=== PATIENT | male | born 1965 | race Caucasian/White ===

== ENCOUNTER 2020-09-04 16:27 | Inpatient (IN) | payer BC, MEDICAID ==
[~2020-09-04] VITALS: Ht 177.8 cm; Wt 53.3 kg
--- NOTE | 2020-09-04 17:30 | NUR ---
PATIENT HAS STENT IN LEFT LEG, GLF 1.5 WEEKS AGO, PER PATIENT "FALL KNOCKED MY STENT OUT OF WHACK." PATIENT WAS SCHEDULED AT [facility] FOR SURGERY TODAY AT 1530 TO FIX STENT, DID NOT MAKE APPT. PT RESTING IN [facility], MONITORING IN PLACE, NADN AT THIS TIME, WCTM.
[2020-09-04] MEDS ORDERED: KETOROLAC 30 MG/1 ML ONE (17:48)
[2020-09-04 18:00] LABS: MEAN CORPUSCULAR HEMOGLOBIN 22.5 pg (27.5-34.5); MEAN CORPUSCULAR HGB CONC 31.4 g/dL (33.2-36.2); MEAN PLATELET VOLUME 7.6 fL (7.4-10.4); PLATELET COUNT 401 x10^3/uL (130-400); RED BLOOD COUNT 4.07 x10^6/uL (4.38-5.82); RED CELL DISTRIBUTION WIDTH 17.5 % (9.4-14.8)
[2020-09-04] MEDS ORDERED: PLEASE ENTER WEIGHT MC SCH (18:00)
[2020-09-04] MEDS ORDERED: KETOROLAC 30 MG/1 ML IVPush ONE (18:00)
[2020-09-04] MEDS ORDERED: SODIUM CHLORIDE FLUSH 10ML SYR IVF ONE (18:00)
[2020-09-04] MEDS ORDERED: SODIUM CHLORIDE 0.9% 1,000ML IVBOLUS ONE ×2 (18:00→19:30)
[2020-09-04 18:01] LABS: MD YES
[2020-09-04 18:03] LABS: MICROSCOPIC INDICATED
[2020-09-04 18:06] LABS: ALBUMIN 2.5 g/dL (3.4-5.0); ANION GAP 7 mmol/L (5-15); CALCIUM 8.4 mg/dL (8.5-10.1); CHLORIDE 94 mmol/L (98-107); CREATININE 1.28 mg/dL (0.7-1.3)
[2020-09-04 18:38] LABS: ANISOCYTOSIS 1+; BAND#(MANUAL) 0.46 x10^3/uL; BANDS%(MANUAL) 2 % (0-7); LYMPH#(MANUAL) 1.86 x10^3/uL (1-3.4); LYMPHS% (MANUAL) 8 % (22-44); MICROCYTOSIS 1+; MONOS#(MANUAL) 0.46 x10^3/uL (0.3-2.7); MONOS% (MANUAL) 2 % (2-9); SEG#(MANUAL) 20.42 x10^3/uL (1.8-6.8); SEGS% (MANUAL) 88 % (42-75)
[2020-09-04 18:39] LABS: <PLATELET ESTIMATE> INCREASED; <PLT MORPHOLOGY> NORMAL PLT MORPH
[2020-09-04] MEDS ORDERED: MORPHINE SULFATE 4 MG/ML, 1ML IVPush PRN (19:00)
[2020-09-04] MEDS ORDERED: MORPHINE SULFATE 4 MG/ML, 1ML ONE (19:08)
--- NOTE | 2020-09-04 19:11 | NUR ---
PT TO CT VIA [facility] AT THIS TIME.
[2020-09-04] MEDS ORDERED: OMNIPAQUE 350 MG/ML, 100ML BOTTLE ONE (19:23)
[2020-09-04] MEDS ORDERED: CLINDAMYCIN PMX 600MG/50ML 50 ML ONE (20:24)
[2020-09-04] MEDS ORDERED: CLINDAMYCIN PMX 600MG/50ML 50 ML IV ONE (20:30)
[2020-09-04] MEDS ORDERED: VANCOMYCIN PER PHARMACY MC PRN ×2 (20:30→21:30)
[2020-09-04] MEDS ORDERED: VANCOMYCIN 1,300 MG in SODIUM CHLORIDE 0.9% 250 ML IV ONE (20:30)
[2020-09-04] MEDS ORDERED: CEFTRIAXONE PMX 1GM/50ML 50 ML IV SCH (21:00)
[2020-09-04] MEDS ORDERED: ONDANSETRON ODT 4 MG PO PRN (21:30)
[2020-09-04] MEDS ORDERED: POLYETHYLENE GLYCOL 17 GM PACKET PO PRN (21:30)
[2020-09-04] MEDS ORDERED: BISACODYL 10 MG SUPP PR PRN (21:30)
[2020-09-04] MEDS ORDERED: ACETAMINOPHEN 325 MG TABLET PO PRN (21:30)
[2020-09-04] MEDS: OXYcodone IR 5MG TABLET PO PRN (22:24)
[2020-09-04] MEDS ORDERED: PHARMACOKINETIC MONITORING MC PRN (22:30)
[2020-09-04 23:05] VITALS: BP 177/104
[2020-09-04] MEDS ORDERED: AMLO-211 PO (23:10)
[2020-09-04] MEDS ORDERED: METO-93 PO (23:10)
[2020-09-04] MEDS ORDERED: TAMS-11 PO (23:10)
[2020-09-04] MEDS ORDERED: LISI5TAB7 PO (23:10)
[2020-09-04] MEDS ORDERED: HYDR-3343 PO (23:10)
[2020-09-04 23:13] VITALS: BP 196/115
[2020-09-04] MEDS: INSULIN LISPRO 100 UNITS/ML, PEN SQ-INSULIN SCH (23:15)
[2020-09-04] MEDS ORDERED: LABETALOL 5MG/ML, 20ML IVPush ONE (23:30)
[2020-09-05] MEDS: PIPERACILLIN/TAZO/PMX 3.375GM 50 ML IV SCH ×2 (00:12→06:04)
[2020-09-05] MEDS: FLUCONAZOLE 100MG/50ML 100 MG in BAG 1 EACH IVPB SCH (00:43)
[2020-09-05] MEDS: NS + 20MEQ KCL 1,000 ML IV SCH ×2 (01:43→16:55)
[2020-09-05 02:15] VITALS: BP 164/92
[2020-09-05 05:11] LABS: BASOPHILS % (AUTO) 0 % (0-1); EOSINOPHILS % (AUTO) 1 % (1-7); LYMPHOCYTES % (AUTO) 9 % (22-44); MEAN CORPUSCULAR HEMOGLOBIN 22.5 pg (27.5-34.5); MEAN CORPUSCULAR HGB CONC 31.6 g/dL (33.2-36.2); MEAN PLATELET VOLUME 7.8 fL (7.4-10.4); MONOCYTES % (AUTO) 5 % (2-9); NEUTROPHILS % (AUTO) 85 % (42-75); PLATELET COUNT 371 x10^3/uL (130-400); RED BLOOD COUNT 3.79 x10^6/uL (4.38-5.82); RED CELL DISTRIBUTION WIDTH 17.3 % (9.4-14.8)
[2020-09-05 05:26] LABS: CHLORIDE 99 mmol/L (98-107)
[2020-09-05 05:30] LABS: ANION GAP 7 mmol/L (5-15); CALCIUM 8.6 mg/dL (8.5-10.1); CREATININE 1.24 mg/dL (0.7-1.3)
[2020-09-05 05:47] LABS: MD SCAN
[2020-09-05] MEDS: METOPROLOL SUCCINATE 50 MG TAB.ER.24H PO SCH (06:15)
[2020-09-05] MEDS: OXYcodone IR 5MG TABLET PO PRN ×3 (06:20→13:20)
[2020-09-05 08:03] VITALS: BP 169/94
[2020-09-05] MEDS: INSULIN LISPRO 100 UNITS/ML, PEN SQ-INSULIN SCH ×4 (08:14→21:27)
[2020-09-05] MEDS: AMLODIPINE 10 MG TAB PO SCH (08:20)
[2020-09-05] MEDS: TAMSULOSIN 0.4 MG CAP.ER.24H PO SCH (08:20)
[2020-09-05] MEDS: LISINOPRIL 5 MG TABLET PO SCH (08:20)
[2020-09-05] MEDS: SENNA/DOCUSATE TABLET PO SCH (08:21)
[2020-09-05] MEDS ORDERED: POTASSIUM CHLORIDE 40 MEQ in SODIUM CHLORIDE 0.9% 500 ML IV ONE (08:30)
[2020-09-05] MEDS ORDERED: INSULIN GLARGINE 100 UNITS/ML, PEN SQ-INSULIN SCH (09:00)
[2020-09-05] MEDS: AMPICILLIN/SULBACTAM 3 GM in SODIUM CHLORIDE 0.9% 100 ML IV SCH ×2 (11:17→18:36)
[2020-09-05 12:55] VITALS: BP 163/89
[2020-09-05] MEDS: MORPHINE SULFATE 4 MG/ML, 1ML IVPush PRN ×2 (14:40→20:16)
[2020-09-05] MEDS ORDERED: MAGNESIUM SULFATE PMX 2GM/50ML 50 ML IV ONE (19:00)
[2020-09-05] MEDS ORDERED: VANCOMYCIN PMX 1GM/200ML 200 ML IV SCH (20:00)
[2020-09-05 20:18] VITALS: BP 137/84
[2020-09-05] MEDS ORDERED: FAMOTIDINE 20 MG TABLET PO SCH (21:00)
[2020-09-05] MEDS: INSULIN GLARGINE 100 UNITS/ML, PEN SQ-INSULIN SCH (21:26)
[2020-09-06] MEDS: AMPICILLIN/SULBACTAM 3 GM in SODIUM CHLORIDE 0.9% 100 ML IV SCH ×4 (00:25→18:08)
[2020-09-06] MEDS: MORPHINE SULFATE 4 MG/ML, 1ML IVPush PRN ×4 (00:34→19:50)
[2020-09-06 00:39] VITALS: BP 144/84
[2020-09-06] MEDS: FLUCONAZOLE 100MG/50ML 100 MG in BAG 1 EACH IVPB SCH (01:13)
[2020-09-06 05:22] LABS: CHLORIDE 98 mmol/L (98-107)
[2020-09-06 05:23] LABS: MEAN CORPUSCULAR HEMOGLOBIN 22.7 pg (27.5-34.5); MEAN CORPUSCULAR HGB CONC 31.5 g/dL (33.2-36.2); PLATELET COUNT 375 x10^3/uL (130-400); RED BLOOD COUNT 3.74 x10^6/uL (4.38-5.82); RED CELL DISTRIBUTION WIDTH 17.3 % (9.4-14.8)
[2020-09-06 05:32] LABS: ANION GAP 5 mmol/L (5-15); CREATININE 0.76 mg/dL (0.7-1.3)
[2020-09-06] MEDS: METOPROLOL SUCCINATE 50 MG TAB.ER.24H PO SCH (06:15)
[2020-09-06 06:17] LABS: MD YES
[2020-09-06 06:19] LABS: ANISOCYTOSIS 1+; LYMPH#(MANUAL) 3.11 x10^3/uL (1-3.4); LYMPHS% (MANUAL) 14 % (22-44); METAMYELOCYTES# (MANUAL) 0.22 x10^3/uL (0-0); METAMYELOCYTES% (MANUAL) 1 % (0-1); MICROCYTOSIS 1+; MONOS#(MANUAL) 0.89 x10^3/uL (0.3-2.7); MONOS% (MANUAL) 4 % (2-9); SEG#(MANUAL) 17.98 x10^3/uL (1.8-6.8); SEGS% (MANUAL) 81 % (42-75)
[2020-09-06 06:20] LABS: <PLATELET ESTIMATE> ADEQUATE; <PLT MORPHOLOGY> NORMAL PLT MORPH
[2020-09-06] MEDS: INSULIN LISPRO 100 UNITS/ML, PEN SQ-INSULIN SCH ×4 (07:00→19:38)
[2020-09-06] MEDS: INSULIN GLARGINE 100 UNITS/ML, PEN SQ-INSULIN SCH ×2 (07:31→19:38)
[2020-09-06] MEDS ORDERED: POTASSIUM PHOSPHATE 22 MEQ in SODIUM CHLORIDE 0.9% 500 ML IV ONE (08:00)
[2020-09-06] MEDS ORDERED: MAGNESIUM SULFATE PMX 2GM/50ML 50 ML IV ONE (08:00)
[2020-09-06] MEDS: NS + 20MEQ KCL 1,000 ML IV SCH ×3 (08:20→20:21)
[2020-09-06] MEDS: TAMSULOSIN 0.4 MG CAP.ER.24H PO SCH (08:45)
[2020-09-06] MEDS: AMLODIPINE 10 MG TAB PO SCH (08:45)
[2020-09-06] MEDS: LISINOPRIL 5 MG TABLET PO SCH (08:45)
[2020-09-06] MEDS: SENNA/DOCUSATE TABLET PO SCH (09:00)
[2020-09-06] MEDS ORDERED: INSULIN GLARGINE 100 UNITS/ML, PEN SQ-INSULIN ONE (09:00)
[2020-09-06 11:12] VITALS: BP 142/82
[2020-09-06 13:05] VITALS: BP 150/87
[2020-09-06] MEDS ORDERED: MIDAZOLAM 1 MG/ML, 2ML ONE (13:19)
[2020-09-06] MEDS ORDERED: FENTANYL PF 250 MCG/5ML ONE (13:19)
[2020-09-06] MEDS ORDERED: CHLORHEXIDINE 15 ML UDC ONE (13:42)
[2020-09-06] MEDS ORDERED: DEXAMETHASONE 4 MG/ML, 1ML ONE (13:50)
[2020-09-06] MEDS ORDERED: ONDANSETRON 2MG/ML, 2ML ONE (13:50)
[2020-09-06] MEDS ORDERED: PROPOFOL 10 MG/ML, 20ML ONE (13:50)
[2020-09-06] MEDS ORDERED: VASOPRESSIN 20 UNIT/ML, 1ML ONE (13:50)
[2020-09-06] MEDS ORDERED: ONDANSETRON 2MG/ML, 2ML IVPush PRN (14:00)
[2020-09-06] MEDS ORDERED: MEPERIDINE/PF 25MG/0.5ML IVPush PRN (14:00)
[2020-09-06] MEDS ORDERED: METHOCARBAMOL 1,000 MG in DEXTROSE 5% 100 ML IV PRN (14:00)
[2020-09-06] MEDS ORDERED: ACETAMINOPHEN 325 MG TABLET PO PRN (14:00)
[2020-09-06] MEDS ORDERED: FENTANYL PF 100 MCG/2ML IV PRN (14:00)
[2020-09-06] MEDS ORDERED: LORazepam 2 MG/ML, 1ML IVPush PRN (14:00)
[2020-09-06] MEDS ORDERED: PROMETHAZINE 25 MG/ML, 1ML IVPush PRN (14:00)
[2020-09-06] MEDS ORDERED: hydrALAzine 20 MG/ML, 1ML IV PRN (14:00)
[2020-09-06] MEDS ORDERED: OXYcodone 5 MG/5 ML ORAL.SOL UDC PO PRN (14:00)
[2020-09-06] MEDS ORDERED: HYDROmorphone 1 MG/ML, 1ML INJ IVPush PRN (14:00)
[2020-09-06] MEDS ORDERED: CHLORHEXIDINE 15 ML UDC PO ONE (14:00)
[2020-09-06] MEDS ORDERED: LABETALOL 5MG/ML, 20ML IV PRN (14:00)
[2020-09-06] MEDS ORDERED: OMNIPAQUE 350 MG/ML, 50 ML BOTTLE ONE (14:55)
[2020-09-06] MEDS ORDERED: FENTANYL PF 100 MCG/2ML ONE (15:16)
[2020-09-06] MEDS ORDERED: OXYcodone 5 MG/5 ML ORAL.SOL UDC ONE (15:17)
[2020-09-06] MEDS: VANCOMYCIN PMX 1GM/200ML 200 ML IV SCH (16:06)
[2020-09-06] MEDS ORDERED: ONDANSETRON 2MG/ML, 2ML IV PRN (17:00)
[2020-09-06 19:50] VITALS: BP 104/65
[2020-09-07 00:20] VITALS: BP 125/76
[2020-09-07] MEDS: AMPICILLIN/SULBACTAM 3 GM in SODIUM CHLORIDE 0.9% 100 ML IV SCH ×4 (00:33→16:50)
[2020-09-07] MEDS: FLUCONAZOLE 100MG/50ML 100 MG in BAG 1 EACH IVPB SCH (01:12)
[2020-09-07] MEDS: MORPHINE SULFATE 4 MG/ML, 1ML IVPush PRN ×3 (04:17→16:54)
[2020-09-07 05:00] LABS: BASOPHILS % (AUTO) 0 % (0-1); EOSINOPHILS % (AUTO) 1 % (1-7); LYMPHOCYTES % (AUTO) 10 % (22-44); MEAN CORPUSCULAR HEMOGLOBIN 22.5 pg (27.5-34.5); MEAN CORPUSCULAR HGB CONC 31.3 g/dL (33.2-36.2); MEAN PLATELET VOLUME 8.1 fL (7.4-10.4); MONOCYTES % (AUTO) 6 % (2-9); NEUTROPHILS % (AUTO) 82 % (42-75); PLATELET COUNT 400 x10^3/uL (130-400); RED BLOOD COUNT 3.75 x10^6/uL (4.38-5.82); RED CELL DISTRIBUTION WIDTH 17.2 % (9.4-14.8)
[2020-09-07 05:05] LABS: ANION GAP 6 mmol/L (5-15); CHLORIDE 101 mmol/L (98-107); CREATININE 0.91 mg/dL (0.7-1.3)
[2020-09-07 05:07] LABS: MD NO
[2020-09-07] MEDS: NS + 20MEQ KCL 1,000 ML IV SCH ×2 (06:05→20:15)
[2020-09-07] MEDS: METOPROLOL SUCCINATE 50 MG TAB.ER.24H PO SCH (06:07)
[2020-09-07 07:27] VITALS: BP 160/89
[2020-09-07] MEDS: INSULIN LISPRO 100 UNITS/ML, PEN SQ-INSULIN SCH ×4 (07:37→20:23)
[2020-09-07] MEDS: INSULIN GLARGINE 100 UNITS/ML, PEN SQ-INSULIN SCH ×2 (07:37→20:23)
[2020-09-07] MEDS: VANCOMYCIN PMX 1GM/200ML 200 ML IV SCH (07:39)
[2020-09-07] MEDS: LISINOPRIL 5 MG TABLET PO SCH (07:40)
[2020-09-07] MEDS: SENNA/DOCUSATE TABLET PO SCH (07:40)
[2020-09-07] MEDS: AMLODIPINE 10 MG TAB PO SCH (07:40)
[2020-09-07] MEDS: TAMSULOSIN 0.4 MG CAP.ER.24H PO SCH (07:40)
[2020-09-07] MEDS ORDERED: VANCOMYCIN PMX 1GM/200ML 200 ML IV SCH (12:00)
[2020-09-07 13:39] VITALS: BP 130/74
[2020-09-07] MEDS: OXYcodone IR 5MG TABLET PO PRN ×2 (13:52→20:27)
[2020-09-07 19:36] VITALS: BP 154/88
[2020-09-08] MEDS: AMPICILLIN/SULBACTAM 3 GM in SODIUM CHLORIDE 0.9% 100 ML IV SCH ×3 (00:36→12:43)
[2020-09-08] MEDS: MORPHINE SULFATE 4 MG/ML, 1ML IVPush PRN ×4 (00:45→21:21)
[2020-09-08] MEDS: FLUCONAZOLE 100MG/50ML 100 MG in BAG 1 EACH IVPB SCH (01:15)
[2020-09-08 02:07] VITALS: BP 148/82
[2020-09-08] MEDS: OXYcodone IR 5MG TABLET PO PRN ×2 (03:10→17:37)
[2020-09-08 05:30] LABS: BASOPHILS % (AUTO) 1 % (0-1); EOSINOPHILS % (AUTO) 1 % (1-7); LYMPHOCYTES % (AUTO) 18 % (22-44); MEAN CORPUSCULAR HEMOGLOBIN 22.8 pg (27.5-34.5); MEAN CORPUSCULAR HGB CONC 31.5 g/dL (33.2-36.2); MONOCYTES % (AUTO) 9 % (2-9); NEUTROPHILS % (AUTO) 71 % (42-75); PLATELET COUNT 400 x10^3/uL (130-400); RED BLOOD COUNT 3.75 x10^6/uL (4.38-5.82); RED CELL DISTRIBUTION WIDTH 16.9 % (9.4-14.8)
[2020-09-08 05:33] LABS: MD NO
[2020-09-08 05:39] LABS: ANION GAP 5 mmol/L (5-15); CALCIUM 8.1 mg/dL (8.5-10.1); CHLORIDE 100 mmol/L (98-107)
[2020-09-08 05:40] LABS: CREATININE 0.71 mg/dL (0.7-1.3)
[2020-09-08] MEDS: NS + 20MEQ KCL 1,000 ML IV SCH ×2 (06:14→16:23)
[2020-09-08] MEDS: METOPROLOL SUCCINATE 50 MG TAB.ER.24H PO SCH (06:22)
[2020-09-08 07:44] VITALS: BP 147/84
[2020-09-08] MEDS: AMLODIPINE 10 MG TAB PO SCH (08:46)
[2020-09-08] MEDS: SENNA/DOCUSATE TABLET PO SCH (08:46)
[2020-09-08] MEDS: LISINOPRIL 5 MG TABLET PO SCH (08:46)
[2020-09-08] MEDS: TAMSULOSIN 0.4 MG CAP.ER.24H PO SCH (08:46)
[2020-09-08] MEDS: INSULIN GLARGINE 100 UNITS/ML, PEN SQ-INSULIN SCH (09:27)
[2020-09-08] MEDS: INSULIN LISPRO 100 UNITS/ML, PEN SQ-INSULIN SCH ×4 (09:28→21:08)
[2020-09-08 13:58] VITALS: BP 125/77
[2020-09-08] MEDS: PIPERACILLIN/TAZO/PMX 3.375GM 50 ML IV SCH ×2 (16:22→21:21)
[2020-09-08 20:31] VITALS: BP 152/91
[2020-09-08] MEDS ORDERED: INSULIN GLARGINE 100 UNITS/ML, PEN SQ-INSULIN SCH (21:00)
[2020-09-08] MEDS: OXYBUTYNIN CHLORIDE 5 MG TABLET PO SCH (21:08)
[2020-09-09 00:31] VITALS: BP 123/73
[2020-09-09] MEDS: NS + 20MEQ KCL 1,000 ML IV SCH (01:20)
[2020-09-09] MEDS: OXYcodone IR 5MG TABLET PO PRN ×2 (01:20→14:14)
[2020-09-09] MEDS: PIPERACILLIN/TAZO/PMX 3.375GM 50 ML IV SCH ×3 (03:26→15:00)
[2020-09-09] MEDS: MORPHINE SULFATE 4 MG/ML, 1ML IVPush PRN ×2 (04:14→11:47)
[2020-09-09 05:49] LABS: BASOPHILS % (AUTO) 1 % (0-1); EOSINOPHILS % (AUTO) 2 % (1-7); LYMPHOCYTES % (AUTO) 22 % (22-44); MEAN CORPUSCULAR HEMOGLOBIN 22.3 pg (27.5-34.5); MEAN CORPUSCULAR HGB CONC 31.4 g/dL (33.2-36.2); MEAN PLATELET VOLUME 7.8 fL (7.4-10.4); MONOCYTES % (AUTO) 13 % (2-9); NEUTROPHILS % (AUTO) 62 % (42-75); PLATELET COUNT 398 x10^3/uL (130-400); RED BLOOD COUNT 3.67 x10^6/uL (4.38-5.82); RED CELL DISTRIBUTION WIDTH 16.4 % (9.4-14.8)
[2020-09-09 05:50] LABS: MD NO
[2020-09-09 06:00] LABS: ANION GAP 6 mmol/L (5-15); CALCIUM 8.1 mg/dL (8.5-10.1); CHLORIDE 99 mmol/L (98-107); CREATININE 0.73 mg/dL (0.7-1.3)
[2020-09-09 06:47] VITALS: BP 122/75
[2020-09-09] MEDS: METOPROLOL SUCCINATE 50 MG TAB.ER.24H PO SCH (06:48)
[2020-09-09] MEDS: INSULIN LISPRO 100 UNITS/ML, PEN SQ-INSULIN SCH ×3 (07:00→16:00)
[2020-09-09 07:13] VITALS: BP 131/78
[2020-09-09] MEDS ORDERED: POTASSIUM CHLORIDE 40 MEQ in SODIUM CHLORIDE 0.9% 500 ML IV ONE (07:30)
[2020-09-09] MEDS ORDERED: MAGNESIUM SULFATE PMX 4GM/100M 100 ML IVPB ONE (07:30)
[2020-09-09] MEDS: LISINOPRIL 5 MG TABLET PO SCH (08:27)
[2020-09-09] MEDS: AMLODIPINE 10 MG TAB PO SCH (08:28)
[2020-09-09] MEDS: TAMSULOSIN 0.4 MG CAP.ER.24H PO SCH (08:28)
[2020-09-09] MEDS: OXYBUTYNIN CHLORIDE 5 MG TABLET PO SCH (08:28)
[2020-09-09] MEDS: SENNA/DOCUSATE TABLET PO SCH (08:29)
[2020-09-09] MEDS ORDERED: INSULIN GLARGINE 100 UNITS/ML, PEN SQ-INSULIN SCH (09:00)
[2020-09-09 12:58] VITALS: BP 123/74
[2020-09-09] MEDS ORDERED: INSU100I13 SQ-INSULIN (16:09)
[2020-09-09] MEDS ORDERED: TAMS-11 PO (16:09)
[2020-09-09] MEDS ORDERED: OXYC10TA6 PO ×3 (16:09→17:07)
[2020-09-09] MEDS ORDERED: ONDA4TAB13 PO (16:09)
[2020-09-09] MEDS ORDERED: OXYC5TAB98 PO (16:09)
[2020-09-09] MEDS ORDERED: INSU100I11 SQ-INSULIN (16:09)
[2020-09-09] MEDS ORDERED: HYDR-3343 PO (16:09)
[2020-09-09] MEDS ORDERED: LEVOFLOXACIN (16:09)
[2020-09-09] MEDS ORDERED: AMLO-211 PO (16:09)
[2020-09-09] MEDS ORDERED: METO-93 PO (16:09)
[2020-09-09] MEDS ORDERED: LISI5TAB7 PO (16:09)
[2020-09-09] MEDS ORDERED: OXYB5TAB10 PO (16:09)
[2020-09-09] MEDS ORDERED: SENN-211 PO (16:09)
[2020-09-09] MEDS ORDERED: FERR324T5 PO (16:17)
== END 2020-09-09 18:04 | disposition home or self-care (01) | DRG 466 ==
LOC: ED 19:23 → EDIP 20:16 → 3N 22:03
PROVIDERS: ADMIT Family Medicine; ATTEND Internal Medicine
PROC: 0T9B70Z Drainage of Bladder with Drainage Device, Via Natural or Artificial Opening (ICD-10-PCS; 2020-09-04)
PROC: 0T778DZ Dilation of Left Ureter with Intraluminal Device, Via Natural or Artificial Opening Endoscopic (ICD-10-PCS; 2020-09-06)
PROC: BT1F1ZZ Fluoroscopy of Left Kidney, Ureter and Bladder using Low Osmolar Contrast (ICD-10-PCS; 2020-09-06)
PROC: 0TP98DZ Removal of Intraluminal Device from Ureter, Via Natural or Artificial Opening Endoscopic (ICD-10-PCS; principal; 2020-09-06 15:45)
DX: T83.511A Infection and inflammatory reaction due to indwelling urethral catheter, initial encounter (principal); A41.9 Sepsis, unspecified organism; J18.9 Pneumonia, unspecified organism; N13.6 Pyonephrosis; N17.9 Acute kidney failure, unspecified; T83.122A Displacement of indwelling ureteral stent, initial encounter; D50.9 Iron deficiency anemia, unspecified; E87.6 Hypokalemia; F12.90 Cannabis use, unspecified, uncomplicated; N32.0 Bladder-neck obstruction; F17.210 Nicotine dependence, cigarettes, uncomplicated; R59.0 Localized enlarged lymph nodes; K80.20 Calculus of gallbladder without cholecystitis without obstruction; Y73.2 Prosthetic and other implants, materials and accessory gastroenterology and urology devices associated with adverse incidents; Y84.6 Urinary catheterization as the cause of abnormal reaction of the patient, or of later complication, without mention of misadventure at the time of the procedure; Z20.822 Contact with and (suspected) exposure to COVID-19; I10 Essential (primary) hypertension; E11.65 Type 2 diabetes mellitus with hyperglycemia; E11.42 Type 2 diabetes mellitus with diabetic polyneuropathy; M60.9 Myositis, unspecified; Z91.19 Patient's noncompliance with other medical treatment and regimen; Z87.442 Personal history of urinary calculi; Z80.9 Family history of malignant neoplasm, unspecified; Z79.4 Long term (current) use of insulin; Y92.89 Other specified places as the place of occurrence of the external cause
CPT/HCPCS: 36415; 71045; 74177; 74420; 76770; 80048; 81001; 82040; 82728; 82962; 83036; 83540; 83550; 83605; 83735; 84100; 85025; 87040; 87077; 87086; 87186; 87635; 96374; 99285; G0378; J0295; J1100; J1885; J2250; J2405; J2543; J2704; J3010; J3370; J3480; Q9967; C1758; C1769; C2617; J1450; J1815; J2270; J3475; J7030; J7040; J7050